=== PATIENT | male | born 1930 | race Two or more races ===

== ENCOUNTER 2016-08-30 17:21 | Inpatient (IN) | payer MEDICARE, MEDICAID ==
[~2016-08-30] VITALS: Ht 177.8 cm; Wt 75.7 kg
[2016-08-30] MEDS ORDERED: IPRATROPIUM BROMIDE 0.5 MG/2.5 ML NEBU NEB ONE ×2 (17:30→18:15)
[2016-08-30] MEDS ORDERED: predniSONE 10 MG TABLET PO ONE (17:30)
[2016-08-30] MEDS ORDERED: ALBUTEROL SULFATE 2.5 MG/3 ML NEBU NEB ONE ×2 (17:30→18:15)
--- NOTE | 2016-08-30 17:39 | NUR ---
PT IS IN ROOM #1B. DR RUIZ EVALUATED THE PT.
[2016-08-30] MEDS ORDERED: [UNRECOGNIZED DRUG - REMARK] (17:40)
[2016-08-30] MEDS ORDERED: [UNRECOGNIZED DRUG - REMARK] (17:40)
[2016-08-30] MEDS ORDERED: [UNRECOGNIZED DRUG - REMARK] (17:40)
[2016-08-30] MEDS ORDERED: [UNRECOGNIZED DRUG - REMARK] (17:40)
[2016-08-30] MEDS ORDERED: [UNRECOGNIZED DRUG - REMARK] (17:40)
[2016-08-30] MEDS ORDERED: [UNRECOGNIZED DRUG - REMARK] (17:40)
[2016-08-30] MEDS ORDERED: [UNRECOGNIZED DRUG - REMARK] (17:40)
[2016-08-30] MEDS ORDERED: [UNRECOGNIZED DRUG - REMARK] (17:40)
[2016-08-30] MEDS ORDERED: [UNRECOGNIZED DRUG - REMARK] (17:40)
[2016-08-30] MEDS ORDERED: [UNRECOGNIZED DRUG - REMARK] (17:40)
[2016-08-30] MEDS ORDERED: predniSONE 50 MG TABLET ONE (17:42)
[2016-08-30] MEDS ORDERED: predniSONE 10 MG TABLET ONE (17:43)
[2016-08-30] MEDS ORDERED: ALBUTEROL SULFATE 2.5 MG/3 ML NEBU ONE ×2 (17:44→18:14)
[2016-08-30] MEDS ORDERED: IPRATROPIUM BROMIDE 0.5 MG/2.5 ML NEBU ONE ×2 (17:45→18:14)
[2016-08-30 17:56] LABS: CARBON DIOXIDE 30 mmol/L (21-32); CHLORIDE 102 mmol/L (98-107); CREATININE 1.1 mg/dL (0.6-1.3); GLUCOSE 171 mg/dL (74-106); POTASSIUM 4.2 mmol/L (3.5-5.1); UREA NITROGEN, BLOOD 25 mg/dL (7-18)
[2016-08-30 17:58] LABS: BASOPHILS % (AUTO) 0.6 % (0.0-2.0); EOSINOPHILS # (AUTO) 0.3 K/uL (0.0-0.7); EOSINOPHILS % (AUTO) 4.1 % (0.0-7.0); HEMATOCRIT 39.6 % (40-50); HEMOGLOBIN 12.9 G/DL (14.0-18.0); LYMPHOCYTES % (AUTO) 12.5 % (20.5-51.5); MEAN CORPUSCULAR HEMOGLOBIN 31.2 UUG (27.0-31.0); MEAN CORPUSCULAR HGB CONC 33 g/dL (32.0-37.0); MEAN CORPUSCULAR VOLUME 95.5 FL (82.0-92.0); MONOCYTES # (AUTO) 0.7 K/UL (0.1-1.30); MONOCYTES % (AUTO) 8.2 % (0.0-11.0); NEUTROPHILS % (AUTO) 74.6 % (38.5-71.5); PLATELET COUNT (AUTO) 181 K/UL (150-450); RED BLOOD CELL COUNT(AUTO) 4.14 MIL/UL (4.7-6.1)
[2016-08-30] MEDS ORDERED: LEVOFLOXACIN 750 MG/D5W 150 ML PIGGYBACK IV ONE (18:00)
[2016-08-30 18:09] LABS: ALANINE AMINOTRANSFERASE 16 U/L (16-63); ALKALINE PHOSPHATASE 83 U/L (50-136); ASPARTATE AMINOTRANSFERASE 20 U/L (15-37); BILIRUBIN,DIRECT 0.1 mg/dL (0.0-0.2); BILIRUBIN,TOTAL 0.3 mg/dL (0.2-1.0)
[2016-08-30] MEDS ORDERED: LEVOFLOXACIN 750MG/D5W 150 ML IV ONE (18:23)
--- NOTE | 2016-08-30 18:25 | NUR ---
REPORT WAS GIVEN TO AUDIO VIDEO REPAIRER. PT WAS TRANSFERED TO TELEMETRY ROOM #209.
[2016-08-30] MEDS ORDERED: FUROSEMIDE 20 MG/2 ML VIAL IV ONE (18:30)
[2016-08-30] MEDS ORDERED: FUROSEMIDE 20 MG/2 ML VIAL ONE (18:42)
[2016-08-30 20:00] VITALS: BP 128/80
[2016-08-30] MEDS ORDERED: ONDANSETRON 4 MG/2 ML VIAL IV PRN (20:15)
[2016-08-30] MEDS ORDERED: DEXTROSE 50% 50 ML DISP.SYRIN IV PRN (20:15)
[2016-08-30] MEDS ORDERED: MAGNESIUM HYDROXIDE 30 ML LIQUID UDC PO PRN (20:15)
[2016-08-30] MEDS ORDERED: ZOLPIDEM 5 MG TABLET PO PRN (20:15)
[2016-08-30] MEDS ORDERED: ACETAMINOPHEN 325 MG TABLET PO PRN (20:15)
[2016-08-30] MEDS ORDERED: Z GUARD REMEDY PASTE 57 GM TUBE TOP PRN (20:15)
[2016-08-30] MEDS ORDERED: HYDROCODONE/APAP 5-325MG TABLET PO PRN (20:15)
--- NOTE | 2016-08-30 20:30 | NUR ---
Received this 85 y/o male patient in bed, awake alert oriented x3. O2 2 L/NC in use. Exertional SOB noted. Patient on Tele- showed sinus tachy w/ rare PVCs. Vital signs are stable. Placed on high back rest position- patient verbalized relief. Discarded 950 ml amount of urine from his urinal. Admission orders initiated by [facility] on-call provider (Efrem JUDD). Will continue to monitor.
[2016-08-30] MEDS: BLOOD SUGAR DIAGNOSTIC 1 EACH STRIP VI SCH (21:26)
[2016-08-30] MEDS: ENOXAPARIN SODIUM 40 MG/0.4 ML DISP.SYRIN SQ SCH (21:27)
[2016-08-30] MEDS: INSULIN REGULAR, HUMAN 300 UNIT/3 ML VIAL SQ PRN (21:30)
[2016-08-31] VITALS: BP 112/65
--- NOTE | 2016-08-31 03:44 | NUR ---
Patient coughing on & off, instructed to keep his sputum for sputum culture. No acute distress, assisted w/ all needs. Sinus rhythm w/ occasional PVCs on the monitor. Report given to Chinyere DAWSON.
--- NOTE | 2016-08-31 03:45 | NUR ---
RECEIVED PATIENT FROM NURSE EM. PATIENT WAS LAYING IN BED. HOB ELEVATED. NO ACUTE DISTRESS NOTED AT THIS TIME. TELE SR WITH OCCASIONAL PVC. O2 2L NC. SAFETY INITIATED. CALL LIGHT WITHIN REACH. WILL CONTINUE TO MONITOR.
[2016-08-31 04:00] VITALS: BP 128/70
[2016-08-31] MEDS: PANTOPRAZOLE SODIUM 40 MG TABLET.DR PO SCH (06:21)
[2016-08-31 06:31] LABS: BASOPHILS % (AUTO) 0.2 % (0.0-2.0); EOSINOPHILS % (AUTO) 0.2 % (0.0-7.0); HEMATOCRIT 37.5 % (40-50); HEMOGLOBIN 12.2 G/DL (14.0-18.0); LYMPHOCYTES # (AUTO) 0.7 K/UL (0.8-4.8); LYMPHOCYTES % (AUTO) 14.5 % (20.5-51.5); MEAN CORPUSCULAR HEMOGLOBIN 30.8 UUG (27.0-31.0); MEAN CORPUSCULAR HGB CONC 33 g/dL (32.0-37.0); MEAN CORPUSCULAR VOLUME 94.7 FL (82.0-92.0); MONOCYTES # (AUTO) 0.3 K/UL (0.1-1.30); NEUTROPHILS # (AUTO) 3.6 K/UL (1.8-8.9); NEUTROPHILS % (AUTO) 79.1 % (38.5-71.5); PLATELET COUNT (AUTO) 166 K/UL (150-450); RED BLOOD CELL COUNT(AUTO) 3.96 MIL/UL (4.7-6.1); WHITE BLOOD COUNT (AUTO) 4.6 K/UL (4.0-11.2)
[2016-08-31 06:49] LABS: CARBON DIOXIDE 33 mmol/L (21-32); CHLORIDE 106 mmol/L (98-107); CHOLESTEROL 120 mg/dL (<200); CREATININE 1.1 mg/dL (0.6-1.3); GLUCOSE 151 mg/dL (74-106); HDL CHOLESTEROL 59 mg/dL (40-60); MAGNESIUM 2.1 mg/dL (1.8-2.4); PHOSPHOROUS 2.7 mg/dL (2.5-4.9); POTASSIUM 4.6 mmol/L (3.5-5.1); TRIGLYCERIDES 33 MG/DL (30-150); UREA NITROGEN, BLOOD 26 mg/dL (7-18)
--- NOTE | 2016-08-31 07:04 | NUR ---
REPORT GIVEN TO SAMIR BAILEY. PATIENT SLEPT COMFORTABLY THROUGHOUT THE NIGHT. NO ACUTE DISTRESS NOTED. ALL MEDS GIVEN ORDERED. ACCU CHECK DONE. SAFETY MAINTAINED THROUGHOUT THE NIGHT. CALL LIGHT IS WITHIN REACH.
[2016-08-31] MEDS: ALBUTEROL SULFATE 2.5 MG/3 ML NEBU NEB SCH ×3 (07:33→19:23)
[2016-08-31] MEDS: IPRATROPIUM BROMIDE 0.5 MG/2.5 ML NEBU NEB SCH ×3 (07:33→19:22)
[2016-08-31] MEDS: BLOOD SUGAR DIAGNOSTIC 1 EACH STRIP VI SCH ×4 (07:34→22:07)
[2016-08-31] MEDS: INSULIN REGULAR, HUMAN 300 UNIT/3 ML VIAL SQ PRN (07:40)
--- NOTE | 2016-08-31 07:57 | NUR ---
AWAKE, ALERT AND ORIENTED WITH NO SIGNS OF DISTRESS. O2 AT 2L NC SAT 95%. BREATHING TX GIVEN BY RT. AFEBRILE. SR ON MONITOR
[2016-08-31] MEDS: FUROSEMIDE 20 MG/2 ML VIAL IV SCH (08:09)
[2016-08-31 11:28] VITALS: BP 135/84
[2016-08-31] MEDS ORDERED: ASPIRIN 81 MG TAB.CHEW PO SCH (12:00)
[2016-08-31] MEDS: CLOPIDOGREL 75 MG TABLET PO SCH (13:50)
[2016-08-31] MEDS: CARVEDILOL 3.125 MG TABLET PO SCH ×2 (13:51→18:59)
[2016-08-31 15:10] VITALS: BP 154/92
[2016-08-31] MEDS: LEVOFLOXACIN 750MG/D5W 750 MG in PREMIXED 1 EACH IV SCH (16:57)
--- NOTE | 2016-08-31 17:57 | NUR ---
CONTINUE WITH IV ANTIBIOTIC ORDERED NO ADVERSE REACTION NOTED
--- NOTE | 2016-08-31 19:30 | NUR ---
RECEIVED PATIENT SITTING COMFORTABLY IN THE CHAIR. NO ACUTE DISTRESS NOTED. ON 2L O2 NC. TELE IS SR WITH PVC. SAFETY INITIATED. INSTRUCTED PATIENT TO USE CALL LIGHT IF NEED ASSISTANCE. INSTRUCTED PATIENT TO DEEP BREATH AND COUGH. WILL ANTICIPATE TO START IV. WILL CONTINUE TO MONITOR.
[2016-08-31 20:00] VITALS: BP 121/90
[2016-08-31] MEDS: ATORVASTATIN 20 MG TABLET PO SCH (20:56)
[2016-08-31] MEDS: ENOXAPARIN SODIUM 40 MG/0.4 ML DISP.SYRIN SQ SCH (21:02)
[2016-09-01] VITALS: BP 130/84
[2016-09-01 04:00] VITALS: BP 119/75
[2016-09-01] MEDS: PANTOPRAZOLE SODIUM 40 MG TABLET.DR PO SCH (06:43)
[2016-09-01] MEDS: BLOOD SUGAR DIAGNOSTIC 1 EACH STRIP VI SCH ×4 (06:47→20:43)
[2016-09-01] MEDS: IPRATROPIUM BROMIDE 0.5 MG/2.5 ML NEBU NEB SCH ×3 (07:35→19:35)
[2016-09-01] MEDS: ALBUTEROL SULFATE 2.5 MG/3 ML NEBU NEB SCH ×3 (07:35→19:35)
--- NOTE | 2016-09-01 07:49 | NUR ---
PATIENT SLEPT COMFORTABLY THROUGHOUT THE NIGHT. TELE SR WITH OCCASIONAL PVC. IV WAS RE-INSERTED AT THE LEFT FA 22 G. SAFETY WAS MAINTAINED THROUGHOUT THE NIGHT. ALL MEDS GIVEN ORDERED. ALL NEEDS MET.
[2016-09-01] MEDS: CLOPIDOGREL 75 MG TABLET PO SCH (08:39)
[2016-09-01] MEDS: FUROSEMIDE 20 MG/2 ML VIAL IV SCH (08:40)
[2016-09-01] MEDS: CARVEDILOL 3.125 MG TABLET PO SCH ×2 (08:44→17:57)
[2016-09-01] MEDS: INSULIN REGULAR, HUMAN 300 UNIT/3 ML VIAL SQ PRN (11:21)
[2016-09-01 11:45] VITALS: BP 99/58
[2016-09-01 15:55] VITALS: BP 94/50
[2016-09-01] MEDS: LEVOFLOXACIN 750MG/D5W 750 MG in PREMIXED 1 EACH IV SCH (17:58)
[2016-09-01 19:00] VITALS: BP 109/82
--- NOTE | 2016-09-01 19:10 | NUR ---
PATIENT ALERT ORIENTED, NO SOB NO CHEST PAIN NOTED. PATIENT RYTHM IS SINUS RYTHM WITH OCCASSIONAL PVC, ASYMPTOMATIC, ON OXYGEN 2LNC, OXYGEN SAT WNL. CONT TO MONITOR.
[2016-09-01] MEDS: ATORVASTATIN 20 MG TABLET PO SCH (20:36)
[2016-09-01] MEDS: ENOXAPARIN SODIUM 40 MG/0.4 ML DISP.SYRIN SQ SCH (20:37)
--- NOTE | 2016-09-01 21:03 | NUR ---
PERIPHERAL IV ON LEFT FOREAM INFILTRATED, DISCONTINUED. REINSERT IV ON RIGHT HAND 22 GAUGE TOLERATE WELL.
[2016-09-01 23:48] VITALS: BP 121/74
[2016-09-02 04:00] VITALS: BP 118/75
[2016-09-02] MEDS: BLOOD SUGAR DIAGNOSTIC 1 EACH STRIP VI SCH ×2 (05:51→11:56)
[2016-09-02] MEDS: PANTOPRAZOLE SODIUM 40 MG TABLET.DR PO SCH (06:01)
--- NOTE | 2016-09-02 06:24 | NUR ---
PATIENT SLEPT MOST OF THE NIGHT, PATIENT IS SINUS RYTHM WITH PVC, NO SOB NO CHEST PAIN NOTED, CONTINENT ASSIST WITH TOILETING NO DISTRESS.
--- NOTE | 2016-09-02 08:00 | NUR ---
UP ON CHAIR DENIES PAIN OF SOB VS WNL
[2016-09-02] MEDS: IPRATROPIUM BROMIDE 0.5 MG/2.5 ML NEBU NEB SCH (08:09)
[2016-09-02] MEDS: ALBUTEROL SULFATE 2.5 MG/3 ML NEBU NEB SCH (08:09)
[2016-09-02] MEDS: CLOPIDOGREL 75 MG TABLET PO SCH (08:16)
[2016-09-02] MEDS: CARVEDILOL 3.125 MG TABLET PO SCH (08:17)
[2016-09-02] MEDS ORDERED: FUROSEMIDE 20 MG TABLET PO SCH (09:00)
--- NOTE | 2016-09-02 11:15 | NUR ---
SEEN BT DR SAXENA CHANGE STATUS TO MS, AGREED DC PLAN
[2016-09-02 11:44] VITALS: BP 117/72
[2016-09-02 12:00] LABS: CARBON DIOXIDE 36 mmol/L (21-32); CHLORIDE 103 mmol/L (98-107); CREATININE 1.4 mg/dL (0.6-1.3); GLUCOSE 106 mg/dL (74-106); UREA NITROGEN, BLOOD 29 mg/dL (7-18)
--- NOTE | 2016-09-02 12:00 | NUR ---
SEEN BY PRODUCTION SAMPLER WITH DISCHARGE ORDER, CERTIFIED RETINAL ANGIOGRAPHER MADE AWARE
[2016-09-02] MEDS ORDERED: LEVO500T2 PO (12:02)
[2016-09-02] MEDS ORDERED: FURO20TA4 PO (12:02)
[2016-09-02] MEDS ORDERED: CARV3.122 PO (12:02)
[2016-09-02 12:08] LABS: BASOPHILS % (AUTO) 0.4 % (0.0-2.0); EOSINOPHILS # (AUTO) 0.3 K/uL (0.0-0.7); EOSINOPHILS % (AUTO) 4.1 % (0.0-7.0); HEMOGLOBIN 13.1 G/DL (14.0-18.0); LYMPHOCYTES # (AUTO) 1.4 K/UL (0.8-4.8); LYMPHOCYTES % (AUTO) 19.3 % (20.5-51.5); MEAN CORPUSCULAR HEMOGLOBIN 30.3 UUG (27.0-31.0); MEAN CORPUSCULAR HGB CONC 32 g/dL (32.0-37.0); MEAN CORPUSCULAR VOLUME 95.5 FL (82.0-92.0); MONOCYTES # (AUTO) 0.7 K/UL (0.1-1.30); MONOCYTES % (AUTO) 9.6 % (0.0-11.0); NEUTROPHILS % (AUTO) 66.6 % (38.5-71.5); RED BLOOD CELL COUNT(AUTO) 4.32 MIL/UL (4.7-6.1)
[2016-09-02] MEDS ORDERED: ATOR20TA PO (12:09)
[2016-09-02 12:18] LABS: WHITE BLOOD COUNT (AUTO) 7.4 K/UL (4.0-11.2)
[2016-09-02 12:19] LABS: HEMATOCRIT 41.3 % (40-50); PLATELET COUNT (AUTO) 233 K/UL (150-450)
[2016-09-02] MEDS ORDERED: GUAIFENESIN SUGAR FREE 100 MG/5 ML UDC PO PRN ×2 (13:30)
--- NOTE | 2016-09-02 15:35 | NUR ---
The patient will be discharged today back home [[address] [place] [address]] via taxi voucher. He was not sure about his address but he provided a phone number of his facility administrator - Kristy Garrett [ ]. This predatory animal exterminator spoke to Kristy who stated that she is the independent manager transition and she confirmed that the patient has an apartment with them and is quite independent with all of his ADLs. He usually takes [employer] transportation around town but since it is too late to acquire ACCESS services, [employer] [RN Catering Service Manager], approved a taxi voucher for the patient's safety. The patient is very thankful. His RN, Cindy, is aware of his discharge plan.
[2016-09-02 16:16] VITALS: BP 103/60
--- NOTE | 2016-09-02 16:17 | NUR ---
DISCHARGED HOME STABLE VIA CAB WITH RX AND FOLLOW-UP INSTRUCTION
== END 2016-09-02 16:10 | disposition home or self-care (01) | DRG 291 ==
LOC: ER 17:25 → TELE 18:20 → MED 09-02 12:27
DX: I11.0 Hypertensive heart disease with heart failure (principal); J18.9 Pneumonia, unspecified organism; J44.0 Chronic obstructive pulmonary disease with (acute) lower respiratory infection; J44.1 Chronic obstructive pulmonary disease with (acute) exacerbation; I50.33 Acute on chronic diastolic (congestive) heart failure; D63.8 Anemia in other chronic diseases classified elsewhere; E11.65 Type 2 diabetes mellitus with hyperglycemia; I25.10 Atherosclerotic heart disease of native coronary artery without angina pectoris; Z95.1 Presence of aortocoronary bypass graft; E11.51 Type 2 diabetes mellitus with diabetic peripheral angiopathy without gangrene
CPT/HCPCS: 36415; 70030-TC; 71010; 83605; 83735; 84100; 85025; 87040; 87070; 93005; 93307; 94640; 97161; J1650; J1815; J1940; J1956; J3590; J7050; J7512